=== PATIENT | female | born 1970 | race Caucasian/White ===

== ENCOUNTER 2018-12-30 21:59 | Inpatient (IN) | payer BC, OTHER ==
[2018-12-31] MEDS: ALBUTEROL 0.083% (NEB) 2.5 MG/3 ML AMP HHN (00:22)
[2018-12-31] MEDS: IPRATROPIUM (NEB) 0.5 MG/2.5 ML AMP INH (00:22)
[2018-12-31 00:26] LABS: ADD MAN DIFF? NO
[2018-12-31 00:32] LABS: WHITE BLOOD COUNT 7.8 10^3/ul (4.8-10.8)
[2018-12-31 00:32] LABS: ABNORMAL IP MESSAGE 1; BASOPHILS % 0.4 % (0.0-2.0); HEMATOCRIT 40.5 % (37.0-47.0); HEMOGLOBIN 13.2 g/dl (12.0-16.0); LYMPHOCYTES # 0.4 10^3/ul (0.8-2.9); LYMPHOCYTES % 5.4 % (15.0-51.0); MEAN CORPUSCULAR HEMOGLOBIN 28.1 pg (29.0-33.0); MEAN CORPUSCULAR HGB CONC 32.6 g/dl (32.0-37.0); MEAN CORPUSCULAR VOLUME 86.4 fl (82.0-101.0); MEAN PLATELET VOLUME 10.4 fl (7.4-10.4); MONOCYTE # 0.1 10^3/ul (0.3-0.9); MONOCYTES % 0.8 % (0.0-11.0); NEUTROPHIL # 7.3 10^3/ul (1.6-7.5); PLATELET COUNT 305 10^3/UL (140-415); RED BLOOD COUNT 4.69 10^6/ul (4.20-5.40); RED CELL DISTRIBUTION WIDTH 13.1 % (11.5-14.5)
[2018-12-31 00:49] LABS: POSITIVE DIFF @See below
[2018-12-31] MEDS: SODIUM CHLORIDE 0.9% 1L BAG IV* (00:54)
[2018-12-31] MEDS: CEFEPIME 2GM/50 ML (PMX) 50 ML IVPB (00:54)
[2018-12-31 01:06] LABS: ALANINE AMINOTRANSFERASE 23 IU/L (13-69); ALBUMIN 4.7 g/dl (3.3-4.9); ALBUMIN/GLOBULIN RATIO 1.51; ALKALINE PHOSPHATASE 68 IU/L (42-121); ANION GAP 12 (5-13); ASPARTATE AMINO TRANSFERASE 22 IU/L (15-46); BILIRUBIN,INDIRECT 0.3 mg/dl (0-1.1); BILIRUBIN,TOTAL 0.3 mg/dl (0.2-1.3); BLOOD UREA NITROGEN 16 mg/dl (7-20); CALCIUM 9.4 mg/dl (8.4-10.2); CARBON DIOXIDE 23 mmol/L (21-31); CHLORIDE 105 mmol/L (97-110); CREATININE 0.64 mg/dl (0.44-1.00); Estimated GFR > 60 mL/min (>60); GLUCOSE 186 mg/dl (70-220); POTASSIUM 4.3 mmol/L (3.5-5.1); SODIUM 140 mmol/L (135-144); TOTAL PROTEIN 7.8 g/dl (6.1-8.1)
[2018-12-31 01:17] LABS: B-TYPE NATRIURETIC PEPTIDE 52 PG/ML (0-125); TROPONIN-I < 0.012 ng/ml (0.000-0.120)
[2018-12-31] MEDS ORDERED: NACL 0.9% 3 ML SYG IV (02:00)
[2018-12-31] MEDS ORDERED: ALBUTEROL/IPRATROPIUM (NEB) 3 ML AMP HHN (02:00)
[2018-12-31] MEDS ORDERED: BISACODYL (EC) 5 MG TAB PO (02:00)
[2018-12-31] MEDS ORDERED: DOCUSATE SODIUM 100 MG CAP PO (02:00)
[2018-12-31] MEDS: VANCOMYCIN 1 GM (PMX) 250 ML IVPB (02:22)
[2018-12-31 03:44] LABS: B-TYPE NATRIURETIC PEPTIDE 74 PG/ML (0-125)
[2018-12-31 03:54] LABS: LACTIC ACID 2.7 mmol/L (0.5-2.0)
[2018-12-31] MEDS: SOD CHLORIDE 0.9% 1,000 ML IV (04:43)
[2018-12-31] MEDS ORDERED: AL HYDROX/MG HYDROX/SIMETH 30 ML CUP PO (05:00)
[2018-12-31 05:52] LABS: ADD MAN DIFF? NO
[2018-12-31 05:54] LABS: WHITE BLOOD COUNT 6.2 10^3/ul (4.8-10.8)
[2018-12-31 05:54] LABS: ABNORMAL IP MESSAGE 1; BASOPHILS % 0.5 % (0.0-2.0); HEMATOCRIT 36.1 % (37.0-47.0); LYMPHOCYTES # 0.6 10^3/ul (0.8-2.9); LYMPHOCYTES % 9.2 % (15.0-51.0); MEAN CORPUSCULAR HEMOGLOBIN 28.5 pg (29.0-33.0); MEAN CORPUSCULAR HGB CONC 33.2 g/dl (32.0-37.0); MEAN CORPUSCULAR VOLUME 85.7 fl (82.0-101.0); MEAN PLATELET VOLUME 10.5 fl (7.4-10.4); MONOCYTE # 0.3 10^3/ul (0.3-0.9); NEUTROPHIL # 5.3 10^3/ul (1.6-7.5); NEUTROPHILS % 85.8 % (39.0-77.0); PLATELET COUNT 275 10^3/UL (140-415); RED BLOOD COUNT 4.21 10^6/ul (4.20-5.40); RED CELL DISTRIBUTION WIDTH 13.1 % (11.5-14.5)
[2018-12-31 06:01] LABS: POSITIVE DIFF @See below
[2018-12-31 06:12] LABS: LACTIC ACID 2.3 mmol/L (0.5-2.0)
[2018-12-31] MEDS ORDERED: VANCOMYCIN IV PER PHARMACY XX (06:30)
[2018-12-31 06:35] LABS: ALANINE AMINOTRANSFERASE 22 IU/L (13-69); ALBUMIN/GLOBULIN RATIO 1.48; ALKALINE PHOSPHATASE 48 IU/L (42-121); ANION GAP 10 (5-13); ASPARTATE AMINO TRANSFERASE 19 IU/L (15-46); BILIRUBIN,INDIRECT 0.4 mg/dl (0-1.1); BILIRUBIN,TOTAL 0.4 mg/dl (0.2-1.3); BLOOD UREA NITROGEN 12 mg/dl (7-20); CALCIUM 8.7 mg/dl (8.4-10.2); CARBON DIOXIDE 21 mmol/L (21-31); CHLORIDE 109 mmol/L (97-110); CHOL/HDL RATIO 3.7 RATIO; CHOLESTEROL 158 mg/dl (100-200); CREATININE 0.53 mg/dl (0.44-1.00); Estimated GFR > 60 mL/min (>60); GLUCOSE 153 mg/dl (70-220); HDL CHOLESTEROL 42 mg/dl (37-92); LDL CHOLESTEROL,CALCULATED 105 mg/dl; POTASSIUM 4.1 mmol/L (3.5-5.1); SODIUM 140 mmol/L (135-144); TOTAL PROTEIN 6.7 g/dl (6.1-8.1); TRIGLYCERIDES 57 mg/dl (0-149)
[2018-12-31] MEDS: LEVOFLOXACIN 750MG/D5W (PMX) 150 ML IVPB (06:35)
[2018-12-31] MEDS: BENZONATATE 100 MG CAP PO ×4 (06:35→20:25)
[2018-12-31] MEDS: PANTOPRAZOLE (EC) 40 MG TAB PO (06:35)
[2018-12-31 06:44] LABS: D-DIMER < 220.00 ng/ml (<460)
[2018-12-31 06:56] LABS: THYROID STIMULATING HORMONE 0.369 MIU/L (0.465-4.680)
[2018-12-31 07:10] LABS: HEMOGLOBIN A1C 5.8 % (0-5.9)
[2018-12-31] MEDS: ACETAMINOPHEN 325 MG TAB PO ×2 (09:04→15:05)
[2018-12-31] MEDS: VANCOMYCIN 1 GM 250 ML IVPB (09:05)
[2018-12-31] MEDS: predniSONE 20 MG TAB PO (09:05)
[2018-12-31] MEDS: ONDANSETRON 4 MG INJ IV (09:09)
[2018-12-31] MEDS: ALBUTEROL/IPRATROPIUM (NEB) 3 ML AMP HHN ×4 (09:32→20:56)
[2018-12-31 09:53] LABS: ADD UMIC NO; UR ASCORBIC ACID NEGATIVE (NEGATIVE); UR BILIRUBIN (Dip) NEGATIVE (NEGATIVE); UR BLOOD (Dip) NEGATIVE (NEGATIVE); UR CLARITY CLEAR (CLEAR); UR COLOR STRAW (YELLOW); UR GLUCOSE (Dip) NEGATIVE (NEGATIVE); UR KETONES (Dip) NEGATIVE (NEGATIVE); UR LEUKOCYTE ESTERASE (Dip) NEGATIVE Leu/ul (NEGATIVE); UR NITRITE (Dip) NEGATIVE (NEGATIVE); UR TOTAL PROTEIN (Dip) NEGATIVE (NEGATIVE); UR UROBILINOGEN (Dip) NEGATIVE (NEGATIVE)
[2018-12-31 10:48] LABS: LACTIC ACID 0.9 mmol/L (0.5-2.0)
[2018-12-31] MEDS: SOD CHLORIDE 0.9% 100 ML (13:50)
[2018-12-31] MEDS: IOHEXOL 100 ML (13:50)
[2018-12-31] MEDS ORDERED: VANCOMYCIN HCL 1.5 GM in SOD CHLORIDE 0.9% 250 ML IVPB (21:00)
[2019-01-01] MEDS: ALBUTEROL/IPRATROPIUM (NEB) 3 ML AMP HHN ×3 (01:00→08:26)
[2019-01-01] MEDS: LEVOFLOXACIN 750MG/D5W (PMX) 150 ML IVPB (05:18)
[2019-01-01] MEDS: PANTOPRAZOLE (EC) 40 MG TAB PO (05:18)
[2019-01-01 08:46] LABS: ADD MAN DIFF? NO
[2019-01-01 08:49] LABS: WHITE BLOOD COUNT 6.6 10^3/ul (4.8-10.8)
[2019-01-01 08:49] LABS: BASOPHIL # 0.1 10^3/ul (0.0-0.1); BASOPHILS % 0.8 % (0.0-2.0); EOSINOPHILS # 0.1 10^3/ul (0.0-0.5); EOSINOPHILS % 1.7 % (0.0-7.0); HEMATOCRIT 38.5 % (37.0-47.0); HEMOGLOBIN 12.5 g/dl (12.0-16.0); LYMPHOCYTES # 1.8 10^3/ul (0.8-2.9); LYMPHOCYTES % 26.5 % (15.0-51.0); MEAN CORPUSCULAR HEMOGLOBIN 28.4 pg (29.0-33.0); MEAN CORPUSCULAR HGB CONC 32.5 g/dl (32.0-37.0); MEAN CORPUSCULAR VOLUME 87.5 fl (82.0-101.0); MEAN PLATELET VOLUME 10.7 fl (7.4-10.4); MONOCYTE # 0.5 10^3/ul (0.3-0.9); NEUTROPHIL # 4.2 10^3/ul (1.6-7.5); NEUTROPHILS % 62.8 % (39.0-77.0); PLATELET COUNT 280 10^3/UL (140-415); RED CELL DISTRIBUTION WIDTH 13.4 % (11.5-14.5)
[2019-01-01 09:10] LABS: ALANINE AMINOTRANSFERASE 14 IU/L (13-69); ALBUMIN/GLOBULIN RATIO 1.48; ALKALINE PHOSPHATASE 45 IU/L (42-121); ANION GAP 10 (5-13); ASPARTATE AMINO TRANSFERASE 16 IU/L (15-46); BILIRUBIN,INDIRECT 0.5 mg/dl (0-1.1); BILIRUBIN,TOTAL 0.5 mg/dl (0.2-1.3); BLOOD UREA NITROGEN 14 mg/dl (7-20); CALCIUM 8.9 mg/dl (8.4-10.2); CARBON DIOXIDE 25 mmol/L (21-31); CHLORIDE 107 mmol/L (97-110); CREATININE 0.65 mg/dl (0.44-1.00); Estimated GFR > 60 mL/min (>60); GLUCOSE 109 mg/dl (70-220); POTASSIUM 3.7 mmol/L (3.5-5.1); SODIUM 142 mmol/L (135-144); TOTAL PROTEIN 6.7 g/dl (6.1-8.1)
[2019-01-01] MEDS: predniSONE 20 MG TAB PO (09:20)
[2019-01-01] MEDS: BENZONATATE 100 MG CAP PO ×2 (09:20→12:41)
[2019-01-01] MEDS: ONDANSETRON 4 MG INJ IV (09:45)
== END 2019-01-01 16:05 | disposition home or self-care (01) | DRG 203 ==
LOC: E/R 21:59 → PP2 12-31 01:40
DX: J45.901 Unspecified asthma with (acute) exacerbation (principal); E66.9 Obesity, unspecified; Z68.36 Body mass index [BMI] 36.0-36.9, adult
CPT/HCPCS: 36415; 71045; 71275; 80053; 80061; 81003; 83036; 83605; 83735; 83880; 84443; 84484; 85025; 85378; 87040-91; 87400; 93005; 93306; 94640; 94664; 96374; 99285-25

== ENCOUNTER 2019-01-09 17:35 | Emergency (ER) | payer BC | END 2019-01-09 19:15 | disposition home or self-care (01) | LOC: E/R 17:35 | DX: R06.09 Other forms of dyspnea (principal); F41.9 Anxiety disorder, unspecified; R40.2142 Coma scale, eyes open, spontaneous, at arrival to emergency department; R40.2362 Coma scale, best motor response, obeys commands, at arrival to emergency department; R40.2252 Coma scale, best verbal response, oriented, at arrival to emergency department | CPT/HCPCS: 99282 ==